=== PATIENT | female | born 1945 | race Caucasian/White ===

== ENCOUNTER 2021-12-21 14:35 | Emergency (ER) | payer MEDICARE, OTHER ==
[~2021-12-21] VITALS: Wt 68.0 kg
[2021-12-21 15:22] LABS: BASO % 0.5 % (0.0-1.0); EOS # 0.5 10*3/uL (0.0-0.4); EOS % 6.1 % (1.0-4.0); HEMATOCRIT 38.3 % (37.0-47.0); LYMPH # 1.6 10*3/uL (1.3-4.4); LYMPH % 21.1 % (27.0-41.0); MEAN CELL VOLUME 91.4 fl (81.0-99.0); MEAN CORPUSCULAR HGB 30.1 pg (27.0-31.0); MEAN CORPUSCULAR HGB CONC 32.9 g/dl (33.0-37.0); MEAN PLATELET VOLUME 10.4 fl (9.6-12.3); MONO # 0.8 10*3/uL (0.1-1.0); MONO % 10.7 % (3.0-9.0); NEUT # 4.6 10*3/uL (2.3-7.9); NEUT % 60.8 % (47.0-73.0); PLATELET COUNT AUTOMATED 187 10*3/uL (130-400); RED BLOOD COUNT 4.19 10*6/uL (4.10-5.10); RED CELL DISTRI WIDTH 12.5 % (0-14.5); WHITE BLOOD COUNT 7.6 10*3/uL (4.8-10.8)
[2021-12-21 15:39] LABS: CREATININE 1.14 mg/dL (0.55-1.02); POTASSIUM 4.6 mmol/L (3.5-5.1)
[2021-12-21 16:49] LABS: BILIRUBIN Negative (Negative); BLOOD Negative (Negative); CLARITY Clear (Clear); COLOR Yellow (Yellow); GLUCOSE Negative (Negative); KETONE Trace (Negative); LEUKO ESTERASE 1+ (Negative); NITRITE Negative (Negative); UROBILINOGEN 0.2 E.U./dl (0.0-1.0)
[2021-12-21 16:58] LABS: URINE AMPHETAMINES < 1000 (1000ng/ml); URINE BARBITURATES < 200 (200ng/ml); URINE BENZODIAZEPINES < 200 (200ng/ml); URINE CANNABINOIDS (THC) < 50 (50ng/ml); URINE COCAINE < 300 (300ng/ml); URINE METHADONE < 300 (300ng/ml); URINE OPIATES < 300 (300ng/ml)
[2021-12-21 17:01] LABS: URINE PHENCYCLIDINE < 25 (25ng/ml)
[2021-12-21 17:08] LABS: BACTERIA TRACE; EPITHELIAL CELLS 0-2; HYALINE CAST 0-2; RBC 0-2 rbc/hpf (0-2)
[2021-12-21] MEDS ORDERED: NITROFURANTOIN100 M3 PO (20:43)
[2021-12-21] MEDS ORDERED: LEVOTHYROXINE125 MC1 PO (20:51)
[2021-12-21] MEDS ORDERED: RIVASTIGMINE1 EAC1 T (20:51)
[2021-12-21] MEDS ORDERED: OLANZAPINE5 MG PO (20:54)
[2021-12-21] MEDS ORDERED: NAMENDA10 MG PO (20:54)
[2021-12-21] MEDS ORDERED: DEPAKOTE125 MG PO (20:54)
[2021-12-21] MEDS ORDERED: METOPROLOL25 MG PO (20:54)
[2021-12-21] MEDS ORDERED: MELATONIN5 M6 PO (20:55)
[2021-12-21] MEDS ORDERED: MAGNESIUM500 MG PO (20:55)
[2021-12-21] MEDS ORDERED: LIPITOR40 MG PO (20:55)
[2021-12-21] MEDS ORDERED: POTASSIUM GLUCO99 MG PO (20:56)
[2021-12-21] MEDS ORDERED: OLANZAPINE10 MG PO (22:10)
== END 2021-12-21 21:22 ==
LOC: ED 14:35
PROVIDERS: Family Medicine
DX: F31.9 Bipolar disorder, unspecified (principal)

== ENCOUNTER 2022-07-29 12:26 | Emergency (ER) | payer MEDICARE, OTHER ==
[~2022-07-29] VITALS: Wt 65.8 kg
[~2022-07-29 12:26] MED LIST: DEPAKOTE125 MG PO; DIVALPROEX SOD500 M1 PO; LATU120T PO; LEVOTHYROXINE125 MC1 PO; LIPITOR40 MG PO; LITHIUM CARB300 MG PO; MAGNESIUM500 MG PO; MELATONIN5 M6 PO; METOPROLOL25 MG PO; NAMENDA10 MG PO; NITROFURANTOIN100 M3 PO; OLANZAPINE10 MG PO; OLANZAPINE5 MG PO; POTASSIUM GLUCO99 MG PO; RIVASTIGMINE TAR3 M1 PO; RIVASTIGMINE1 EAC1 T; RIVASTIGMINE1 EAC2 T; VITAMIN D3125 MC1 PO
[2022-07-29 13:03] LABS: BASO % 0.4 % (0.0-1.0); EOS # 0.2 10*3/uL (0.0-0.4); EOS % 2.2 % (1.0-4.0); HEMATOCRIT 43.1 % (37.0-47.0); LYMPH # 1.9 10*3/uL (1.3-4.4); LYMPH % 19.5 % (27.0-41.0); MEAN CELL VOLUME 102.1 fl (81.0-99.0); MEAN CORPUSCULAR HGB 32.9 pg (27.0-31.0); MEAN CORPUSCULAR HGB CONC 32.3 g/dl (33.0-37.0); MEAN PLATELET VOLUME 10.2 fl (9.6-12.3); MONO # 0.8 10*3/uL (0.1-1.0); MONO % 8.1 % (3.0-9.0); NEUT # 6.8 10*3/uL (2.3-7.9); NEUT % 68.8 % (47.0-73.0); PLATELET COUNT AUTOMATED 179 10*3/uL (130-400); RED BLOOD COUNT 4.22 10*6/uL (4.10-5.10); RED CELL DISTRI WIDTH 11.9 % (0-14.5)
[2022-07-29 13:17] LABS: ACT PARTIAL THROMBO TIME 21.9 SECONDS (20.0-32.1)
[2022-07-29 13:21] LABS: CREATININE 1.7 mg/dL (0.55-1.02); POTASSIUM 4.1 mmol/L (3.5-5.1); TOTAL PROTEIN 6.3 gm/dL (6.4-8.2)
[2022-07-29 14:16] LABS: BILIRUBIN Negative (Negative); BLOOD 3+ (Negative); CLARITY Clear (Clear); COLOR Yellow (Yellow); GLUCOSE Negative (Negative); KETONE Negative (Negative); LEUKO ESTERASE 2+ (Negative); NITRITE Negative (Negative); SPECIFIC GRAVITY 1.015 (1.001-1.030)
[2022-07-29 14:38] LABS: BACTERIA 2+
== END 2022-07-29 19:59 | disposition short-term general hospital (02) ==
LOC: ED 12:26
PROVIDERS: Emergency Medicine
DX: K22.2 Esophageal obstruction (principal); E78.5 Hyperlipidemia, unspecified; E03.9 Hypothyroidism, unspecified; I12.9 Hypertensive chronic kidney disease with stage 1 through stage 4 chronic kidney disease, or unspecified chronic kidney disease; N18.30 Chronic kidney disease, stage 3 unspecified; Z79.899 Other long term (current) drug therapy

== ENCOUNTER 2022-09-11 15:30 | Inpatient (IN) | payer MEDICARE, OTHER ==
[~2022-09-11] VITALS: Ht 165.1 cm; Wt 61.9 kg
[2022-09-11 16:13] VITALS: BP 128/94
[2022-09-11 19:05] LABS: BASO % 0.4 % (0.0-1.0); EOS # 0.1 10*3/uL (0.0-0.4); EOS % 1.1 % (1.0-4.0); HEMATOCRIT 33.6 % (37.0-47.0); LYMPH # 2.4 10*3/uL (1.3-4.4); LYMPH % 23.1 % (27.0-41.0); MEAN CELL VOLUME 104.3 fl (81.0-99.0); MEAN CORPUSCULAR HGB 33.5 pg (27.0-31.0); MEAN CORPUSCULAR HGB CONC 32.1 g/dl (33.0-37.0); MEAN PLATELET VOLUME 10.6 fl (9.6-12.3); MONO # 0.9 10*3/uL (0.1-1.0); MONO % 8.2 % (3.0-9.0); NEUT % 66.5 % (47.0-73.0); PLATELET COUNT AUTOMATED 185 10*3/uL (130-400); RED BLOOD COUNT 3.22 10*6/uL (4.10-5.10); RED CELL DISTRI WIDTH 11.7 % (0-14.5); WHITE BLOOD COUNT 10.5 10*3/uL (4.8-10.8)
[2022-09-11 19:15] LABS: BILIRUBIN Negative (Negative); BLOOD Negative (Negative); CLARITY Clear (Clear); COLOR Yellow (Yellow); GLUCOSE Negative (Negative); KETONE Trace (Negative); LEUKO ESTERASE 1+ (Negative); NITRITE Negative (Negative); PH 7.5 (4.5-8.0); SPECIFIC GRAVITY 1.015 (1.001-1.030)
[2022-09-11 19:24] LABS: ALKALINE PHOSPHATASE 80 U/L (46-116); BUN 11 mg/dl (9-23); CHLORIDE 109 mmol/L (98-107); CREATININE 1.66 mg/dL (0.55-1.02); LIPASE 60 U/L (12-53); POTASSIUM 4.5 mmol/L (3.4-5.1); SGPT/ALT 11 U/L (10-49); SODIUM 137 mmol/L (136-145)
[2022-09-11 19:25] LABS: TOTAL PROTEIN 5.3 gm/dL (6.0-8.0)
[2022-09-11 20:06] LABS: BACTERIA 1+; RBC 0-2 rbc/hpf (0-2)
[2022-09-11] MEDS ORDERED: AMLODIPINE BESYL5 MG PO (23:49)
[2022-09-11] MEDS ORDERED: BUPROPION HYDR100 M3 PO (23:49)
[2022-09-11] MEDS ORDERED: LITHIUM CARBON300 MG PO (23:50)
[2022-09-11] MEDS ORDERED: OMEPRAZOLE40 MG PO (23:50)
[2022-09-12 00:37] VITALS: BP 134/57
[2022-09-12 07:18] LABS: HEMATOCRIT 36.4 % (37.0-47.0); MEAN CORPUSCULAR HGB 33.5 pg (27.0-31.0); MEAN CORPUSCULAR HGB CONC 29.4 g/dl (33.0-37.0); MEAN PLATELET VOLUME 10.8 fl (9.6-12.3); PLATELET COUNT AUTOMATED 158 10*3/uL (130-400); RED BLOOD COUNT 3.19 10*6/uL (4.10-5.10); RED CELL DISTRI WIDTH 11.8 % (0-14.5); WHITE BLOOD COUNT 8.2 10*3/uL (4.8-10.8)
[2022-09-12 07:30] VITALS: BP 100/60
[2022-09-12 07:33] LABS: MANUAL DIFF REFLEX YES
[2022-09-12 07:37] LABS: CREATININE 1.68 mg/dL (0.55-1.02); POTASSIUM 4.3 mmol/L (3.4-5.1); TOTAL PROTEIN 5.6 gm/dL (6.0-8.0)
[2022-09-12 07:39] LABS: FREE T4 1.54 ng/dl (0.89-1.76); THYROID STIM HORMONE (HS) 0.089 uIU/ml (0.550-4.780)
[2022-09-12 07:43] LABS: MEAN CELL VOLUME 114.1 fl (81.0-99.0)
[2022-09-12 07:47] LABS: TOTAL CELLS COUNTED 100 #CELLS
[2022-09-12 07:48] LABS: BURR CELLS FEW; PLATELET SUFFICIENCY NORMAL (NORMAL)
[2022-09-12 18:45] VITALS: BP 95/65
[2022-09-12 19:40] VITALS: BP 138/66
[2022-09-12 20:45] VITALS: BP 151/78
[2022-09-13 06:41] LABS: BASO % 0.2 % (0.0-1.0); EOS # 0.1 10*3/uL (0.0-0.4); HEMATOCRIT 34.6 % (37.0-47.0); LYMPH # 1.6 10*3/uL (1.3-4.4); LYMPH % 18.8 % (27.0-41.0); MEAN CORPUSCULAR HGB CONC 30.6 g/dl (33.0-37.0); MEAN PLATELET VOLUME 10.4 fl (9.6-12.3); MONO # 0.9 10*3/uL (0.1-1.0); MONO % 10.6 % (3.0-9.0); NEUT # 5.7 10*3/uL (2.3-7.9); PLATELET COUNT AUTOMATED 188 10*3/uL (130-400); RED BLOOD COUNT 3.21 10*6/uL (4.10-5.10); RED CELL DISTRI WIDTH 11.9 % (0-14.5); WHITE BLOOD COUNT 8.3 10*3/uL (4.8-10.8)
[2022-09-13 06:44] LABS: MEAN CELL VOLUME 107.8 fl (81.0-99.0)
[2022-09-13 07:09] LABS: POTASSIUM 4.1 mmol/L (3.4-5.1)
[2022-09-13 07:15] LABS: CREATININE 1.33 mg/dL (0.55-1.02)
[2022-09-13 08:00] VITALS: BP 150/68
[2022-09-13 12:00] VITALS: BP 148/60
[2022-09-13 13:31] LABS: URINE AMPHETAMINES Negative (1000ng/ml); URINE BARBITURATES Negative (200ng/ml); URINE BENZODIAZEPINES Negative (200ng/ml); URINE CANNABINOIDS (THC) Negative (50ng/ml); URINE COCAINE Negative (300ng/ml); URINE METHADONE Negative (300ng/ml); URINE OPIATES Negative (300ng/ml); URINE PHENCYCLIDINE Negative (25ng/ml)
[2022-09-13 16:00] VITALS: BP 155/76
[2022-09-13 20:00] VITALS: BP 176/86
[2022-09-14 06:23] LABS: CREATININE 1.12 mg/dL (0.55-1.02); POTASSIUM 4.4 mmol/L (3.4-5.1)
[2022-09-14 08:00] VITALS: BP 156/88
[2022-09-14 12:00] VITALS: BP 150/80
[2022-09-14 16:00] VITALS: BP 153/69
[2022-09-15] VITALS: BP 171/75
[2022-09-15 06:16] LABS: CREATININE 1.13 mg/dL (0.55-1.02); POTASSIUM 3.8 mmol/L (3.4-5.1)
[2022-09-15 06:19] LABS: BASO % 0.3 % (0.0-1.0); EOS # 0.3 10*3/uL (0.0-0.4); EOS % 4.3 % (1.0-4.0); HEMATOCRIT 34.4 % (37.0-47.0); LYMPH # 1.9 10*3/uL (1.3-4.4); LYMPH % 27.3 % (27.0-41.0); MEAN CELL VOLUME 105.2 fl (81.0-99.0); MEAN CORPUSCULAR HGB 32.7 pg (27.0-31.0); MEAN CORPUSCULAR HGB CONC 31.1 g/dl (33.0-37.0); MONO # 0.8 10*3/uL (0.1-1.0); MONO % 11.1 % (3.0-9.0); NEUT # 3.9 10*3/uL (2.3-7.9); NEUT % 56.7 % (47.0-73.0); PLATELET COUNT AUTOMATED 193 10*3/uL (130-400); RED BLOOD COUNT 3.27 10*6/uL (4.10-5.10); RED CELL DISTRI WIDTH 12.6 % (0-14.5); WHITE BLOOD COUNT 6.8 10*3/uL (4.8-10.8)
[2022-09-15 08:00] VITALS: BP 121/89
[2022-09-15 12:00] VITALS: BP 159/69
[2022-09-15] MEDS ORDERED: VRAYLAR1.5 MG PO (14:29)
== END 2022-09-15 15:35 | DRG 917 ==
LOC: ED 15:30 → EDHOLD 09-12 04:29 → 4E 09-12 20:11
PROVIDERS: Emergency Medicine; Family Medicine; Internal Medicine; Student in an Organized Health Care Education/Training Program; ADMIT Emergency Medicine; ATTEND Emergency Medicine
DX: T56.891A Toxic effect of other metals, accidental (unintentional), initial encounter (principal); E43 Unspecified severe protein-calorie malnutrition; N17.0 Acute kidney failure with tubular necrosis; J18.9 Pneumonia, unspecified organism; G93.41 Metabolic encephalopathy; N30.00 Acute cystitis without hematuria; F31.2 Bipolar disorder, current episode manic severe with psychotic features; E87.0 Hyperosmolality and hypernatremia; G24.01 Drug induced subacute dyskinesia; I12.9 Hypertensive chronic kidney disease with stage 1 through stage 4 chronic kidney disease, or unspecified chronic kidney disease; N18.32 Chronic kidney disease, stage 3b; E03.9 Hypothyroidism, unspecified; F03.90 Unspecified dementia, unspecified severity, without behavioral disturbance, psychotic disturbance, mood disturbance, and anxiety; E78.5 Hyperlipidemia, unspecified; D53.9 Nutritional anemia, unspecified; E87.8 Other disorders of electrolyte and fluid balance, not elsewhere classified; G25.71 Drug induced akathisia; Z90.49 Acquired absence of other specified parts of digestive tract; Z68.22 Body mass index [BMI] 22.0-22.9, adult; Y92.89 Other specified places as the place of occurrence of the external cause